=== PATIENT | male | born 1960 | race Caucasian/White ===

== ENCOUNTER 2017-11-02 16:07 | Inpatient (IN) | payer SELFPAY ==
[~2017-11-02] VITALS: Ht 185.4 cm; Wt 82.1 kg
[~2017-11-02 16:07] MED LIST: AMLO5TAB4 PO
--- NOTE | 2017-11-02 16:31 | NUR ---
STEAK STUCKED "I FEEL IT STUCKED IN MY ESOPHAGUS"
[2017-11-02 17:59] LABS: BASOPHILS # (AUTO) 0.3 /CMM (0.0-0.2); BASOPHILS % (AUTO) 2.7 % (0.0-2.0); EOSINOPHILS % (AUTO) 0.8 % (0.0-6.0); HEMATOCRIT 47 % (39-51); HEMOGLOBIN 16.2 g/dL (13.5-17.5); LYMPHOCYTES # (AUTO) 1.9 /CMM (0.8-4.8); LYMPHOCYTES % (AUTO) 19.8 % (20.0-44.0); MEAN CORPUSCULAR HGB CONC 34 g/dl (31.0-36.0); MEAN CORPUSCULAR VOLUME 85 fL (80-96); MONOCYTES # (AUTO) 0.7 /CMM (0.1-1.30); MONOCYTES % (AUTO) 7.1 % (2.0-12.0); NEUTROPHILS # (AUTO) 6.4 /CMM (1.8-8.9); NEUTROPHILS % (AUTO) 69.6 % (43.0-81.0); PLATELET COUNT (AUTO) 225 /CMM (150-450); RDW COEFFICIENT OF VARIATION 14.6 (11.5-15.0); RED BLOOD CELL COUNT(AUTO) 5.52 MIL/uL (4.5-6.0); WHITE BLOOD COUNT (AUTO) 9.4 K/uL (4.3-11.0)
[2017-11-02 18:09] LABS: CREATININE 1.1 mg/dL (0.6-1.3); POTASSIUM 4.2 mmol/L (3.5-5.1)
[2017-11-02 18:14] LABS: INR 0.93 (0.85-1.15)
[2017-11-02 18:15] LABS: ALBUMIN 4.1 g/dL (3.4-5.0); BILIRUBIN,DIRECT 0.1 mg/dL (0.0-0.2); BILIRUBIN,TOTAL 0.8 mg/dL (0.2-1.0); TOTAL PROTEIN, SERUM 8.4 g/dL (6.4-8.2)
[2017-11-02] MEDS ORDERED: IOHEXOL-300 100 ML VIAL IV ONE (18:18)
[2017-11-02] MEDS ORDERED: GLUCAGON,HUMAN RECOMBINANT 1 MG/VIAL VIAL IV ONE (18:30)
[2017-11-02] MEDS ORDERED: IV NS 0.9% 1,000 ML BAG IV ONE (18:30)
[2017-11-02] MEDS ORDERED: METOCLOPRAMIDE HCL 10 MG/2 ML VIAL IV ONE (18:30)
[2017-11-02] MEDS ORDERED: GLUCAGON,HUMAN RECOMBINANT 1 MG/VIAL VIAL ONE (18:32)
[2017-11-02] MEDS ORDERED: METOCLOPRAMIDE HCL 10 MG/2 ML VIAL ONE (18:32)
[2017-11-02] MEDS ORDERED: WATER FOR INJECTION,STERILE 10 ML ONE (18:32)
--- NOTE | 2017-11-02 19:24 | NUR ---
ASSUMED CARE. PT RESTING QUIETLY, NO ACUTE DISTRESS NOTED, RESP EVEN AND UNLABORED. PT STILL C/O ESOPHAGEAL DISCOMFORT AT THIS TIME. PT AWARE OF PENDING CT RESULT AT THIS TIME. PT AT BEDSIDE. WILL CONTINUE TO MONITOR PT CLOSELY.
[2017-11-02] MEDS ORDERED: ANESTHESIA TRAY IN PYXIS 1 EA TRAY MC ONE (19:35)
--- NOTE | 2017-11-02 19:37 | NUR ---
ER JOHN DAMICO AT BEDSIDE TALKING TO PT REGARDING POSSIBLE EGD, PT VERBALIZE UNDERSTANDING. CONSENT FOR EGD SIGNED BY PT.
--- NOTE | 2017-11-02 19:47 | NUR ---
ER JOHN DAMICO TALKING TO JAYE BOTELLO PT AT THIS TIME.
--- NOTE | 2017-11-02 19:49 | NUR ---
CALLED NURSING SEARCH ENGINE MARKETING SPECIALIST AND ASKED FOR A MED SURG BED.
--- NOTE | 2017-11-02 19:51 | NUR ---
CALLED [facility] FOR PANEL CALL AND TAISHA RYAN WAS PAGED
--- NOTE | 2017-11-02 19:59 | NUR ---
ER JOHN DAMICO [facility].
--- NOTE | 2017-11-02 20:07 | NUR ---
PT IS ASSIGNED TO MED SURG RM#: [id number], PT IS DIAGNOSED WITH ESOPHAGEAL FOREIGN OBSTRUCTION, AND TAISHA RYAN IS THE ACCEPTING CASING OPERATOR.
--- NOTE | 2017-11-02 20:09 | NUR ---
REPORT GIVEN TO OR NURSE. PT TRANSPORTED TO OR.
--- NOTE | 2017-11-02 20:14 | NUR ---
REPORT CALLED TO M/YANET CARDONA.
[2017-11-02 21:15] VITALS: BP 146/79
--- NOTE | 2017-11-02 21:15 | NUR ---
ms/rn notes RECEIVED PATIENT FROM OPERATIONG ROOM ACCOMPANIED BY RN, ON A GURNEY, ALERT, ORIENTED X3, ABLE TO VERBALIZE NEEDS, RESPIRATIONS EVEN AND UNLABORED, SKIN WARM TO TOUCH, VITAL SIGNS CHECK AT 146/79, PULSE 75, ON RA AT 96%, RESPIRATIONS AT 19. DENIES PAIN, NO GUARDING OR GRIMACE, COOPERATIVE TO CARE. WITH DR. ARIZMENDI ORDER DIET FULL LIQUID, AND ON PROTONIX IV . BELONGINGS CHECK, SKIN INTACT, NO S/S OF BLEEDING. WILL CONTINOUSLY MONITOR.
--- NOTE | 2017-11-02 21:16 | NUR ---
LINDA S/P EGD PROCEDURE REMOVAL AND BIOPSY DONE
[2017-11-02 21:45] VITALS: BP 146/79
[2017-11-02 22:15] VITALS: BP 121/65
[2017-11-02] MEDS: PANTOPRAZOLE 40 MG VIAL IV SCH (22:39)
[2017-11-02 22:45] VITALS: BP 124/76
[2017-11-02 23:45] VITALS: BP 142/70
[2017-11-03] MEDS ORDERED: ONDANSETRON HCL/PF 4 MG/2 ML VIAL IVP PRN
[2017-11-03] MEDS ORDERED: Z GUARD REMEDY 2 OZ OINT TP PRN
[2017-11-03] MEDS ORDERED: ACETAMINOPHEN 325 MG TABLET PO PRN
[2017-11-03 01:00] VITALS: BP 119/70
[2017-11-03 02:00] VITALS: BP 118/72
[2017-11-03 04:26] VITALS: BP 118/68
[2017-11-03 06:15] LABS: BASOPHILS % (AUTO) 0.6 % (0.0-2.0); EOSINOPHILS % (AUTO) 2.1 % (0.0-6.0); HEMATOCRIT 44 % (39-51); HEMOGLOBIN 14.8 g/dL (13.5-17.5); LYMPHOCYTES # (AUTO) 1.7 /CMM (0.8-4.8); LYMPHOCYTES % (AUTO) 22.6 % (20.0-44.0); MEAN CORPUSCULAR HGB CONC 34 g/dl (31.0-36.0); MEAN CORPUSCULAR VOLUME 86 fL (80-96); MONOCYTES # (AUTO) 0.7 /CMM (0.1-1.30); MONOCYTES % (AUTO) 9.2 % (2.0-12.0); NEUTROPHILS # (AUTO) 4.9 /CMM (1.8-8.9); NEUTROPHILS % (AUTO) 65.5 % (43.0-81.0); PLATELET COUNT (AUTO) 183 /CMM (150-450); RDW COEFFICIENT OF VARIATION 15.4 (11.5-15.0); RED BLOOD CELL COUNT(AUTO) 5.07 MIL/uL (4.5-6.0); WHITE BLOOD COUNT (AUTO) 7.5 K/uL (4.3-11.0)
[2017-11-03 06:39] LABS: CALCIUM, SERUM 8.4 mg/dL (8.5-10.1); MAGNESIUM 2.4 mg/dL (1.8-2.4); PHOSPHORUS 2.7 mg/dL (2.5-4.9); POTASSIUM 3.7 mmol/L (3.5-5.1)
--- NOTE | 2017-11-03 07:22 | NUR ---
323-2 MS/RN NOTES PATIENT S/P EGD, RESTING COMFORTABLY IN BED, DENIED PAIN. CALL LIGHTS WITHIN REACH, SKIN WARM TO TOUCH, CALL LIGHTS WITHIN REACH, WILL MONITOR. WILL ENDORSE TO AM RN FOR ABHINAV. 324-1
--- NOTE | 2017-11-03 07:30 | NUR ---
RN MS NOTES PT IN BED, AWAKE, ALERT AND ORIENTED, DENIES PAIN OR ANY DISCOMFORT, BREATHING PATTERN NORMAL, CALL LIGHT WITHIN REACH, PLAN OF CARE DISCUSSED WITH PT, VERBALIZED UNDERSTANDING, NEEDS ATTENDED.
[2017-11-03 07:59] LABS: FREE PSA 0.46 ng/mL (0.00-45); PROSTATE SPECIFIC ANTIGEN SCR 3.05 ng/mL (0.00-4.00)
[2017-11-03 08:00] VITALS: BP 154/85
[2017-11-03] MEDS: PANTOPRAZOLE 40 MG VIAL IV SCH (08:42)
--- NOTE | 2017-11-03 10:19 | NUR ---
RN MS NOTES PT AWAKE, ALERT AND ORIENTED, WALKING IN HIS ROOM WITH STEADY GAIT, NO COMPLAINT OF PAIN, RESPIRATIONS NORMAL, PT SEEN BY DR. AQUINO, DISCHARGE INSTRUCTIONS PROVIDED TO PT, VERBALIZED UNDERSTANDING, INSTRUCTED PT TO SEE HIS PRIMARY CARE PHYSICIAN, VERBALIZED UNDERSTANDING, PRESCRIPTION PROVIDED TO PT, PT IN A HURRY TO GO, UNABLE TO WAIT MUCH LONGER TO SIGN HER D/C PAPERS AND BELONGINGS LIST, SAID HE HAS AN APPOINTMENT AND CANNOT WAIT, PT FOUND HIS CELLPHONE, PICKED UP BY HIS FRIEND, LEFT IN STABLE CONDITION.
--- NOTE | 2017-11-03 10:25 | NUR ---
RN MS NOTES NEW PRESCRIPTION PROVIDED TO PT BY DR. AQUINO.
== END 2017-11-03 10:20 | disposition home or self-care (01) | DRG 395 ==
LOC: ER 16:10 → MED 20:18
PROVIDERS: ADMIT Nurse Practitioner Acute Care; ATTEND Nurse Practitioner Acute Care
PROC: 0DB58ZX Excision of Esophagus, Via Natural or Artificial Opening Endoscopic, Diagnostic (ICD-10-PCS; principal; 2017-11-02 20:25)
PROC: 0DC58ZZ Extirpation of Matter from Esophagus, Via Natural or Artificial Opening Endoscopic (ICD-10-PCS; principal; 2017-11-02 20:25)
PROC: 0DC38ZZ Extirpation of Matter from Lower Esophagus, Via Natural or Artificial Opening Endoscopic (ICD-10-PCS; principal; 2017-11-02 20:25)
PROC: 0DB68ZX Excision of Stomach, Via Natural or Artificial Opening Endoscopic, Diagnostic (ICD-10-PCS; principal; 2017-11-02 20:25)
DX: T18.128A Food in esophagus causing other injury, initial encounter (principal); K22.2 Esophageal obstruction; I10 Essential (primary) hypertension; K40.90 Unilateral inguinal hernia, without obstruction or gangrene, not specified as recurrent; Z98.890 Other specified postprocedural states; N40.0 Benign prostatic hyperplasia without lower urinary tract symptoms; R91.8 Other nonspecific abnormal finding of lung field; K57.30 Diverticulosis of large intestine without perforation or abscess without bleeding; Z79.899 Other long term (current) drug therapy; X58.XXXA Exposure to other specified factors, initial encounter; Y92.009 Unspecified place in unspecified non-institutional (private) residence as the place of occurrence of the external cause; K20.9 Esophagitis, unspecified; K29.70 Gastritis, unspecified, without bleeding
CPT/HCPCS: 36415; 71045-TC; 71260-TC; 80048-TC; 80076-TC; 83735-TC; 84100-TC; 84153-TC; 84154-TC; 85025-TC; 85730-TC; 87081-TC; 88305-TC; 88313-TC; 88342; A4606; C9113; J1610; J2704; J2765; J3490; J7030; Q9967; Z7610